=== PATIENT | male | born 1980 ===

== ENCOUNTER → 2017-02-15 | Outpatient (CLI) | payer OTHER ==
--- NOTE | 2017-02-15 17:20 | Diagnostic Imaging Report ---
INDICATION: MRI clearance. COMPARISON: None available. FINDINGS / IMPRESSION: Single frontal view of the orbits demonstrates no periorbital radiopaque foreign bodies. Dictated by: Dictated on workstation # [id number]
--- NOTE | 2017-02-16 08:25 | Diagnostic Imaging Report ---
PROCEDURE: MRI lumbar spine with and without contrast. TECHNIQUE: Multiplanar, multisequence MRI of the lumbar spine was performed with and without contrast. INDICATION: Low back pain. COMPARISON: None. FINDINGS: There are 5 lumbar type vertebral bodies presumed for the purposes of this report. Minimal retrolisthesis of L2 on L3 and L5 on S1. Alignment is otherwise unremarkable. Vertebral body heights are maintained. Normal bone marrow signal. No abnormal signal in the conus which terminates at L1. Normal configuration of the cauda equina without evidence of arachnoiditis. The visualized paravertebral soft tissues are unremarkable. At L1-L2, a right subarticular disc protrusion mildly narrows the right lateral recess. Mild broad-based disc bulges at L3-L4 and L4-L5 result in no neural impingement. A tiny left paracentral disc protrusion at L5-S1 results in no lateral recess or neural foraminal narrowing. There is no high-grade spinal canal, lateral recess or neural foraminal narrowing throughout the lumbar spine. IMPRESSION: Mild spondylotic changes detailed above, result in no high-grade spinal canal, lateral recess or neural foraminal narrowing. Dictated by: Dictated on workstation # [id number]
== END ==
LOC: RAD 15:13
PROVIDERS: ATTEND Family Medicine
DX: M54.5 Low back pain (principal); Z77.018 Contact with and (suspected) exposure to other hazardous metals
CPT/HCPCS: 70140; 72158; A9579